=== PATIENT | female | born 1970 | race Caucasian/White ===

== ENCOUNTER 2019-02-01 13:01 | Emergency (ER) | payer OTHER ==
[~2019-02-01] VITALS: Ht 157.5 cm; Wt 84.4 kg
--- OUTSIDE RECORDS SUMMARY | 2019-02-01 13:03 | XMS REPORT | Clinical Summary ---
Author Author [facility] Organization [facility] Address Unknown Phone Unavailable Care Team Providers Care Cinetechnician Name Role Phone Angela Parra PCP Allergies No Known Allergies Medications End Date Status Medication Sig Dispensed Refills Start Date Active levothyroxine (SYNTHROID, Take 150 mcg 0 LEVOXYL) 150 mcg tablet by mouth every morning. Active Problems No known active problems Family History Medical History Relation Name Comments Stomach cancer Maternal Grandmother Thyroid disease Paternal Grandmother Diabetes Paternal Uncle Prostate cancer Paternal Uncle Relation Name Status Comments Maternal Grandmother Paternal Grandmother Paternal Uncle Social History Date Tobacco Use Types Packs/Day Years Used Never Smoker Smokeless Tobacco: Never Used Alcohol Use Drinks/Week oz/Week Comments Yes social Sex Assigned at Date Recorded Not on file Industry Job Start Date Occupation Not on file Not on file Not on file Travel End Travel History Travel Start No recent travel history available. Last Filed Vital Signs Not on file Plan of Treatment Health Maintenance Due Date Last Done Comments INFLUENZA VACCINE 04/14/2019 Results Not on fileafter 01/31/2018 Insurance Type Payer Benefit Subscriber ID Effective Phone Address Plan / Dates Group HMO AETNA AETNA xxxxxxxxxx 1997-P HMO,POS,EP resent O, [place] Advance Directives Patient has advance care planning documents on file. For more information, leydi sloan contact: [address] [phone]
[2019-02-01] MEDS ORDERED: KETOROLAC TROMETHAMINE 60 MG/2 ML VIAL IM ONE (13:45)
[2019-02-01 14:54] VITALS: BP 122/73
== END 2019-02-01 15:00 | disposition home or self-care (01) ==
LOC: ER 13:01
DX: M79.652 Pain in left thigh (principal); M79.18 Myalgia, other site
CPT/HCPCS: 93971; 99283

== ENCOUNTER 2019-04-18 19:11 | Emergency (ER) | payer OTHER ==
[~2019-04-18] VITALS: Ht 157.5 cm; Wt 84.4 kg
--- OUTSIDE RECORDS SUMMARY | 2019-04-18 19:13 | XMS REPORT | Continuity of Care Document ---
Author Author [facility] Organization [facility] Address Unknown Phone Unavailable Care Team Providers Care Roto Gravure Press Operator Name Role Phone [facility] Unavailable Unavailable Problems No Data Provided for This Section Medications No Data Provided for This Section Allergies, Adverse Reactions, Alerts No Known Medication Allergies Immunizations No Data Provided for This Section Results No Data Provided for This Section Pathology Reports No Data Provided for This Section Diagnostic Reports No Data Provided for This Section Consultation Notes No Data Provided for This Section Discharge Summaries No Data Provided for This Section History and Physicals No Data Provided for This Section Vital Signs No Data Provided for This Section Encounters Location Location Details Encounter Type Encounter Number Reason For Visit Attending Provider ADM Date DC Date Status Source Departed Emergency Room [id number] LILIANA INGRAM MD 02/01/2019 02/01/2019 [facility] Procedures No Data Provided for This Section Assessment and Plan No Data Provided for This Section Plan of Care Plan of Care Date Source Discharge Date 02/01/19 3:00pm Disposition HOME, SELF-CARE Condition at Discharge Stable Forms Provided Work/School Excuse Prescriptions See Medication Section Referrals [facility] Order Date: Call for an appointment Additional Instructions/Education FOLLOW UP WITH [facility] FOR FOLLOW UP CARE IN 3 DAYS RETURN TO ER FOR NEW OR WORSENING SYMPTOMS 02/01/2019 [facility] Social History Social History Date Source Smoking Status Start Date Stop Date Never Smoker 02/01/2019 [facility] Family History No Data Provided for This Section Advance Directives Order Name Results Value Date Source Advance Directives Advance Directives Directive Response Recorded Date/Time Does the patient have an advance directive? No 02/01/19 1:25pm Do you have a Directive to Physician? No 02/01/19 1:25pm Do you have a Medical Power of Sports Director? No 02/01/19 1:25pm Do you have an out of hospital Do Not Resuscitate Order? No 02/01/19 1:25pm Do you have any special needs we should be aware of? No 02/01/19 1:25pm Do you have a support person here with you today? No 02/01/19 1:25pm Did patient receive Notice of Privacy Practices? Yes 02/01/19 1:25pm Did patient receive patient rights and responsibilities? Yes 02/01/19 1:25pm 02/01/2019 [facility] Functional Status No Data Provided for This Section
--- OUTSIDE RECORDS SUMMARY | 2019-04-18 19:13 | XMS REPORT | Clinical Summary ---
Author Author [employer] Organization [employer] [facility] Address Unknown Phone Unavailable Care Team Providers Care Astronomy Teacher Name Role Phone Angela Parra PCP Allergies [...] INFLUENZA VACCINE 04/14/2019 Results Not on fileafter 04/17/2018 Insurance Type Payer Benefit Subscriber ID Effective Phone Address Plan / Dates Group HMO AETNA AETNA xxxxxxxxxx 1997-P HMO,POS,EP resent O, [employer]/EC Advance Directives Patient has advance care planning documents on file. For more information, leydi sloan contact: [address] [address]
[2019-04-18] MEDS ORDERED: MECLIZINE HCL 12.5 MG TAB ONE (19:58)
[2019-04-18] MEDS ORDERED: SODIUM CHLORIDE 0.9% 1000ML 1,000 ML ONE (19:59)
[2019-04-18] MEDS ORDERED: SODIUM CHLORIDE 0.9% 1000ML 1,000 ML IV ONE (20:00)
[2019-04-18] MEDS ORDERED: MECLIZINE HCL 12.5 MG TAB PO ONE (20:00)
--- NOTE | 2019-04-18 21:00 | NUR ---
RAD CALLED FOR UPDATE ON CT REPORT STATUS, JAVA FLEX DEVELOPER WILL CALL
--- NOTE | 2019-04-18 21:11 | Diagnostic Imaging Report ---
EXAMINATION: Head CT without contrast. HISTORY:Dizziness and vertigo. COMPARISON:None. TECHNIQUE: Multidetector axial images were obtained from the foramen magnum to the vertex without contrast. The images were reconstructed using brain and bone algorithms. Thin section brain images were reformatted into coronal and sagittal planes. Dose modulation, iterative reconstruction, and/or weight based adjustment of the mA/kV was utilized to reduce the radiation dose to as low as reasonably achievable. Intravenous contrast: None IMAGE QUALITY: Acceptable. FINDINGS: Skull/scalp: No lytic or blastic. lesions. No surgical changes. Parenchyma: No abnormal density. No acute hemorrhage, mass or acute major vascular territorial infarct. Arteries: No density suggestive of thrombosis. Dural sinuses: No abnormal density suggestive of thrombosis. Ventricles: No hydrocephalus or displacement. Extra-axial spaces: No abnormal density. Brain volume: Mild bifrontal cerebral volume loss. Craniocervical junction: No mass, Chiari malformation, or basilar invagination. Sella: No mass. Paranasal/mastoid sinuses: Imaged portions unremarkable. IMPRESSION: No acute intracranial abnormality. Mild bifrontal cerebral volume loss. Signed by: Dr. Christie Berry M.D. on 04/18/2019 9:08 PM
== END 2019-04-18 21:47 | disposition home or self-care (01) ==
LOC: ER 19:11
DX: R42 Dizziness and giddiness (principal); R11.0 Nausea; H81.43 Vertigo of central origin, bilateral
CPT/HCPCS: 70450; 99283; J7030; J8597

== ENCOUNTER 2021-09-16 09:19 | Emergency (ER) | payer OTHER ==
[~2021-09-16] VITALS: Ht 157.5 cm; Wt 97.5 kg
[2021-09-16] MEDS ORDERED: VENTOLIN HFA18 GM INH ×2 (11:43→11:55)
[2021-09-16] MEDS ORDERED: DEXAMETHASONE6 MG PO ×2 (11:45→11:55)
[2021-09-16] MEDS ORDERED: AZITHROMYCIN250 MG PO ×2 (11:45→11:55)
[2021-09-16] MEDS ORDERED: GUAIFEN-CODEINE10 ML PO ×2 (11:47→11:55)
== END 2021-09-16 12:04 | disposition home or self-care (01) ==
LOC: FSED 09:44
DX: U07.1 COVID-19 (principal); J40 Bronchitis, not specified as acute or chronic; R05.9 Cough, unspecified; R19.7 Diarrhea, unspecified; E03.9 Hypothyroidism, unspecified
CPT/HCPCS: 99282

== ENCOUNTER 2023-01-24 07:38 | Emergency (ER) | payer OTHER ==
[~2023-01-24] VITALS: Ht 157.5 cm; Wt 100.3 kg
[~2023-01-24 07:38] MED LIST: AZITHROMYCIN250 MG PO; DEXAMETHASONE6 MG PO; GUAIFEN-CODEINE10 ML PO; VENTOLIN HFA18 GM INH
[2023-01-24] MEDS ORDERED: IOPAMIDOL 370 MG/ML 100 ML INFUS..BTL INJ ONE (08:17)
[2023-01-24] MEDS ORDERED: FAMOTIDINE 20 MG/2 ML VIAL IV ONE (08:21)
[2023-01-24] MEDS ORDERED: LACTATED RINGER'S 0 ML ONE (08:21)
[2023-01-24] MEDS ORDERED: ONDANSETRON HCL INJ 2MG/ML 2ML 2 MG/ML VIAL ONE (08:22)
[2023-01-24] MEDS: FAMOTIDINE 20 MG/2 ML VIAL IV STA ×3 (08:27→09:23)
[2023-01-24] MEDS: LACTATED RINGER'S 1,000 ML INJ SCH ×2 (08:27→08:40)
[2023-01-24] MEDS: ONDANSETRON HCL INJ 2MG/ML 2ML 2 MG/ML VIAL IV STA ×2 (08:27→09:23)
[2023-01-24 09:46] VITALS: O2SAT 98
[2023-01-24] MEDS ORDERED: ONDANSETRON ODT4 MG PO (09:49)
[2023-01-24] MEDS ORDERED: LEVOTHYROXINE112 MCG PO (17:40)
== END 2023-01-24 09:58 | disposition home or self-care (01) ==
LOC: FSED 07:49
DX: R10.31 Right lower quadrant pain (principal); K76.89 Other specified diseases of liver; N28.1 Cyst of kidney, acquired; R11.10 Vomiting, unspecified; E03.9 Hypothyroidism, unspecified; R94.31 Abnormal electrocardiogram [ECG] [EKG]
CPT/HCPCS: 74176; 81003; 93005; 99283; J2405; Q9967